=== PATIENT | female | born 1940 | race African-American/Black ===

== ENCOUNTER 2018-03-28 17:50 | Observation (INO) ==
--- NOTE | 2018-03-28 18:08 | Emergency Department Note ---
Disposition Clinical Impression: Syncope Qualifiers: Syncope type: unspecified Qualified Code(s): R55 - Syncope and collapse Disposition: Admitted As Inpatient Condition: Undetermined Time of Disposition: 00:32 General Adult HPI - General Chief complaint: ED Fall Stated complaint: syncope Time Seen by Provider: 03/28/18 17:53 Source: patient, EMS Mode of arrival: EMS Limitations: no limitations Nursing Notes Reviewed: Yes Vital Signs Reviewed: Yes - History of Present Illness Pain Scale: 7 - Related Data Home Medications Medication Instructions Recorded Confirmed ALPRAZolam [Xanax 0.5 MG Tablet] 0.5 mg PO Q6H PRN 06/23/16 03/28/18 Calcium Carbonate [Calcium] 600 mg PO DAILY 06/23/16 03/28/18 Cholecalciferol (D-3) [Vitamin D] 1,000 unit PO DAILY 06/23/16 03/28/18 Lansoprazole [Prevacid] 30 mg PO DAILY 06/23/16 03/28/18 Meloxicam [Mobic] 15 mg PO DAILY 06/23/16 03/28/18 Multivitamin [One Daily Essential] 1 each PO DAILY 06/23/16 03/28/18 Sertraline [Zoloft] 150 mg PO DAILY 06/23/16 03/28/18 TraZODone 50 mg PO HS PRN 06/23/16 03/28/18 Diltiazem CD (24hr) [Cardizem CD] 180 mg PO DAILY 03/28/18 03/28/18 Allergies Allergy/AdvReac Type Severity Reaction Status Date / Time lisinopril Allergy Abdominal Verified 08/31/17 09:16 Pain pentazocine [From Talwin] Allergy Abdominal Verified 08/31/17 09:16 Pain All systems ED: reviewed and negative except as stated. Constitutional: Reports: weakness. Denies: fever, chills Eyes: Denies: vision change ENT ED: Denies: dental pain, dysphagia Cardiovascular: Denies: chest pain Respiratory: Denies: dyspnea Gastrointestinal: Denies: abdominal pain Genitourinary: Denies: urgency, dysuria Musculoskeletal: Reports: back pain, neck pain, arthralgia. Denies: myalgia Neurological: Denies: headache, weakness, numbness, paresthesias, confusion, vertigo Past Medical History - Past Medical History Attestation: Yes The following information was validated with the patient. 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 - Social History Smoking Status: Never smoker Smokeless Tobacco Status: No Alcohol use: Reports: none Drug use: Reports: none Physical Exam - General Limitations: no limitations General appearance: alert, in no apparent distress - Head Head exam: normocephalic, normal inspection, other (Small hematoma to the right temporal region.) - Eye Eye exam: Present: normal appearance, PERRL, EOMI - ENT ENT exam: normal exam, normal oropharynx, mucous membranes moist, other (No hemotympanum) - Neck Neck exam: Present: normal inspection, full ROM, trachea midline - Chest Chest inspection: Present: normal inspection, symmetric chest wall rise - Respiratory Respiratory exam: Present: normal lung sounds bilaterally - Cardiovascular Cardiovascular exam: Present: regular rate, normal rhythm, normal heart sounds - Abdominal Exam Abdominal exam: Present: soft, Non-Tender. Absent: tenderness, distention, guarding, rebound, rigidity - Extremities Exam Extremities exam: Present: normal inspection, full ROM, tenderness (Right hip). Absent: pedal edema - Neurological Exam Neurological exam: Present: alert, oriented X3, CN II-XII intact - Skin Skin exam: Present: warm, dry, intact, normal color Course Vital Signs Temperature 98 F 03/28/18 17:55 Pulse Rate 72 03/28/18 17:55 Respiratory Rate 20 03/28/18 17:55 Blood Pressure 181/90 03/28/18 17:55 O2 Sat by Pulse Oximetry 93 03/28/18 17:55 Temperature 98.3 F 03/28/18 23:01 Pulse Rate 77 03/28/18 23:01 Respiratory Rate 16 03/28/18 23:01 Blood Pressure 152/84 03/28/18 23:01 O2 Sat by Pulse Oximetry 93 03/28/18 23:01 Oxygen Delivery Oxygen Delivery Room Air Medical Decision Making - Lab Data Result diagrams: 03/28/18 17:53 03/28/18 17:53 Lab Results 03/28/18 03/28/18 03/28/18 Range/Units 17:53 17:53 18:45 WBC 7.1 (4.3-11.1) K/mcL RBC 5.25 H (3.82-4.97) M/mcL Hgb 15.1 (11.5-15.4) g/dL Hct 46.0 H (35.3-44.9) % MCV 87.6 (83.0-100.0) fL MCH 28.8 (28.0-33.3) pg MCHC 32.8 (31.6-35.5) g/dL RDW 14.5 (11.5-14.5) % Plt Count 188 (140-400) K/mcL MPV 10.9 (9.4-12.4) fL Immature Gran % 0.3 (0-4) % Seg Neutrophils % 60.6 % Lymphocytes % 26.1 % Monocytes % 8.8 % Eosinophils % 3.4 % Basophils % 0.8 % Neutrophils # 4.3 (1.6-8.9) K/mcL Lymphocytes # 1.9 (0.6-4.6) K/mcL Monocytes # 0.6 (0.0-1.3) K/mcL Eosinophils # 0.2 (0.0-0.6) K/mcL Basophils # 0.1 (0.0-0.2) K/mcL Sodium 139 (136-145) mEq/L Potassium 4.4 (3.5-5.1) mEq/L Chloride 103 (98-107) mEq/L Carbon Dioxide 28 (23-29) mEq/L BUN 24 H (8-23) mg/dL Creatinine 0.94 (0.60-1.20) mg/dL Est GFR ( Amer) > 60 (> 60) Est GFR (Non-Af Amer) 58 L (> 60) BUN/Creatinine Ratio 26 (6-26) Glucose 96 (70-105) mg/dL Calculated Osmolality 292 (280-300) Calcium 9.7 (8.6-10.3) mg/dL Troponin I < 0.03 (< 0.04) ng/mL Urine Color Yellow (Yellow) Urine Clarity Clear (Clear) Urine pH 6.5 (5.0-8.0) pH Units Ur Specific [place] 1.012 (1.010-1.025) Urine Protein Negative (Neg-Trace) mg/dL Urine Glucose (UA) Normal (Normal) mg/dL Urine Ketones Negative (Negative) mg/dL Urine Blood Negative (Negative) Urine Nitrite Negative (Negative) Urine Bilirubin Negative (Negative) Urine Urobilinogen Normal (Normal) mg/dL Ur Leukocyte Esterase Trace H (Negative) Urine Microscopic RBC 0-3 (0-3) per hpf Urine Microscopic WBC 0-3 (0-3) per hpf Ur Squamous Epith Cells Many H (None-Few) per lpf Urine Bacteria Few (None-Few) per hpf Hyaline Casts None Seen (None-Few) per lpf Ur Culture Indicated? NO. A (NO) - EKG Data EKG #1 EKG attestation: Yes I reviewed and interpreted this EKG. EKG results narrative: Heart rate 66 bpm. Normal sinus rhythm. No ST elevation or ST depression. Attestation Statement - Attestation Attestation: I examined this patient and my medical decision-making was reviewed with the Resident Physician. I agree with the documented findings, disposition and treatment plan as described except to the extent set forth below. Patient presents to the ED with a chief complaint of a syncopal episode. Patient states she was tying her shoes when she woke up on the floor. No preceding symptoms. Patient denies any history of syncope, but she does have a history of a seizure once in the past. Complaining of pain in the right side of her head at the moment. On examination she does have some mild swelling erythema to the right druze. She is awake alert and neurologically intact. Plan. Syncope workup. Imaging is unremarkable. Labs unremarkable as well. Patient will be admitted for further monitoring and workup. Chest X-Ray 03/28/18 17:53 IMPRESSION: Stable portable study. D/ / Suzanna Beltre Cha, MD / Suzanna Beltre Cha, MD Interpreting Provider: Suzanna Beltre Cha, MD Head CT 03/28/18 17:53 IMPRESSION: No acute intracranial abnormality. D/ / Markus Iyer MD / Markus Iyer MD Interpreting Provider: Markus Iyer MD Cervical Spine CT 03/28/18 17:54 IMPRESSION: No acute abnormality of the cervical spine. Degenerative and degenerative disc disease. Estimated biologic radiation dose for this procedure:1094 mGy/cm2. D/ / Carey Petersen MD / Carey Petersen MD Interpreting Provider: Carey Petersen MD Lumbar Spine CT 03/28/18 17:54 IMPRESSION: Unremarkable non-contrast CT of the lumbar spine. No acute osseous abnormality. D/ / Carey Petersen MD / Carey Petersen MD Interpreting Provider: Carey Petersen MD Pelvis X-Ray 03/28/18 17:54 IMPRESSION: No acute bony abnormality. D/ / Suzanna Beltre Cha, MD / Suzanna Beltre Cha, MD Interpreting Provider: Suzanna Beltre Cha, MD Thoracic Spine CT 03/28/18 17:54 IMPRESSION: Unremarkable CT of the thoracic spine. Diffuse mild degenerative and degenerative disc changes. No acute fracture or subluxation. D/ / Carey Petersen MD / Carey Petersen MD Interpreting Provider: Carey Petersen MD
[2018-03-28 18:54] LABS: Basophils # 0.1 K/mcL (0.0-0.2); Basophils % 0.8 %; Eosinophils # 0.2 K/mcL (0.0-0.6); Eosinophils % 3.4 %; Hemoglobin 15.1 g/dL (11.5-15.4); Immature Granulocytes % 0.3 % (0-4); Lymphocytes # 1.9 K/mcL (0.6-4.6); Lymphocytes % 26.1 %; Mean Corpuscular HGB Conc 32.8 g/dL (31.6-35.5); Mean Corpuscular Hemoglobin 28.8 pg (28.0-33.3); Mean Corpuscular Volume 87.6 fL (83.0-100.0); Mean Platelet Volume 10.9 fL (9.4-12.4); Monocytes # 0.6 K/mcL (0.0-1.3); Monocytes % 8.8 %; Neutrophils # 4.3 K/mcL (1.6-8.9); Platelet Count 188 K/mcL (140-400); Red Blood Count 5.25 M/mcL (3.82-4.97); Red Cell Distribution Width 14.5 % (11.5-14.5); Segmented Neutrophils % 60.6 %
[2018-03-28 18:55] LABS: Bilirubin,Urine Negative (Negative); Blood,Urine Negative (Negative); Clarity,Urine Clear (Clear); Color,Urine Yellow (Yellow); Glucose,Urine (UA) Normal (Normal); Ketones,Urine Negative (Negative); Leukocyte Esterase,Urine Trace (Negative); Nitrite,Urine Negative (Negative); PH,Urine 6.5 pH Units (5.0-8.0); Protein,Urine Negative (Neg-Trace); Specific Gravity,Urine 1.012 (1.010-1.025); Urobilinogen,Urine Normal (Normal)
[2018-03-28 18:57] LABS: Bacteria,Urine Few per hpf (None-Few); Hyaline Casts,Urine None Seen per lpf (None-Few); RBC,Urine 0-3 per hpf (0-3); Squamous Epithelial Cell,Urine Many per lpf (None-Few); WBC,Urine 0-3 per hpf (0-3)
--- NOTE | 2018-03-28 19:22 | Emergency Department Note ---
Disposition Clinical Impression: Syncope Qualifiers: Syncope type: unspecified Qualified Code(s): R55 - Syncope and collapse Disposition: Admitted As Inpatient Condition: Undetermined Referrals: Demetra Frazier MD [Primary Care Provider] - Forms: ED Satisfaction Letter Time of Disposition: 20:24 General Adult HPI - General Chief complaint: ED Fall Stated complaint: syncope Time Seen by Provider: 03/28/18 17:53 Source: patient, EMS Mode of arrival: EMS Limitations: no limitations Nursing Notes Reviewed: Yes Vital Signs Reviewed: Yes - History of Present Illness HPI Narrative: 77-year-old female arrives to the emergency department after a syncopal episode at home today. The patient states she went down to tie her shoe and she woke up on the ground. The patient thinks that she passed out a couple times. The patient is unsure about hitting her head but thinks she did because she has a some bruising on the right side of her head. The patient is complaining of headache as well as some mid to low back pain. She denies any other complaint of the right hip pain. The patient denies any previous asthma episodes of CP in the past. She denies any prodromal symptoms to include dizziness, lightheaded sensation, headache, chest pain, difficulty breathing. The patient arrives to the emergency Department is neurologically intact. Her examination is benign and the patient is nontoxic appearing. The patient does have a small hematoma to the right side of her head. No other obvious abnormalities noted on initial examination. The patient denies any other complaints and is otherwise resting comfortably in the room at this time. Pain Scale: 7 - Related Data Home Medications Medication Instructions Recorded Confirmed ALPRAZolam [Xanax 0.5 MG Tablet] 0.5 mg PO Q6H PRN 06/23/16 08/31/17 Calcium Carbonate [Calcium] 600 mg PO DAILY 06/23/16 08/31/17 Chlorthalidone 25 mg PO DAILY 06/23/16 08/31/17 Cholecalciferol (D-3) [Vitamin D] 1,000 unit PO DAILY 06/23/16 08/31/17 Lansoprazole [Prevacid] 30 mg PO DAILY 06/23/16 02/16/18 Meloxicam [Mobic] 15 mg PO DAILY 06/23/16 02/16/18 Mometasone Furoate [Nasonex] 2 spr NS DAILY PRN 06/23/16 08/31/17 Multivitamin [One Daily Essential] 1 each PO DAILY 06/23/16 02/16/18 Sertraline [Zoloft] 200 mg PO DAILY 06/23/16 02/16/18 TraZODone 50 mg PO HS PRN 06/23/16 02/16/18 Allergies Allergy/AdvReac Type Severity Reaction Status Date / Time lisinopril Allergy Abdominal Verified 08/31/17 09:16 Pain pentazocine [From Talwin] Allergy Abdominal Verified 08/31/17 09:16 Pain All systems ED: reviewed and negative except as stated. Constitutional: Reports: weakness. Denies: fever, chills Eyes: Denies: vision change ENT ED: Denies: dental pain, dysphagia Cardiovascular: Denies: chest pain Respiratory: Denies: dyspnea Gastrointestinal: Denies: abdominal pain Genitourinary: Denies: urgency, dysuria Musculoskeletal: Reports: back pain, neck pain, arthralgia. Denies: myalgia Neurological: Denies: headache, weakness, numbness, paresthesias, confusion, vertigo Past Medical History - Past Medical History Attestation: Yes The following information was validated with the patient. 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 - Social History Smoking Status: Never smoker Smokeless Tobacco Status: No Alcohol use: Reports: none Drug use: Reports: none Physical Exam - General Limitations: no limitations General appearance: alert, in no apparent distress - Head Head exam: normocephalic, normal inspection, other (Small hematoma noted on the right temporal lobe.) - Eye Eye exam: Present: normal appearance, PERRL, EOMI - ENT ENT exam: normal exam, normal oropharynx, mucous membranes moist - Neck Neck exam: Present: normal inspection, full ROM, trachea midline - Chest Chest inspection: Present: normal inspection, symmetric chest wall rise - Respiratory Respiratory exam: Present: normal lung sounds bilaterally - Cardiovascular Cardiovascular exam: Present: regular rate, normal rhythm, normal heart sounds - Abdominal Exam Abdominal exam: Present: soft, Non-Tender. Absent: tenderness, distention, guarding, rebound, rigidity - Extremities Exam Extremities exam: Present: normal inspection, full ROM. Absent: tenderness, pedal edema - Neurological Exam Neurological exam: Present: alert, oriented X3, CN II-XII intact. Absent: motor sensory deficit - Expanded Neurological Exam Patient oriented to: Present: person, place, time Speech: Present: fluid speech Cranial nerves: EOM function (II, III, IV, ): Normal, facial sensation (V): Normal, facial palsy (VII): Normal Motor strength - LUE: 5/5 Motor strength - RUE: 5/5 Motor strength - LLE: 5/5 Motor strength - RLE: 5/5 Sensory exam upper extremity: light touch: Normal Sensory exam lower extremity: light touch: Normal Coma Scale Eye Opening: Spontaneous Coma Scale Motor Response: Obeys Commands Coma Scale Verbal Response: Oriented Coma Scale Total: 15 - Skin Skin exam: Present: warm, dry, intact, normal color Course Vital Signs Temperature 98 F 03/28/18 17:55 Pulse Rate 72 03/28/18 17:55 Respiratory Rate 20 03/28/18 17:55 Blood Pressure 181/90 03/28/18 17:55 O2 Sat by Pulse Oximetry 93 03/28/18 17:55 Temperature 98 F 03/28/18 17:55 Pulse Rate 74 03/28/18 19:00 Respiratory Rate 18 03/28/18 19:00 Blood Pressure 177/119 03/28/18 19:00 O2 Sat by Pulse Oximetry 96 03/28/18 19:00 Oxygen Delivery Oxygen Delivery Room Air Medical Decision Making - MDM Narrative Medical decision making narrative: Patient's workup in the emergency department demonstrates a mildly elevated BUNs. The patient does admit to drinking less fluids recently. Patient is resting comfortably. Imaging including head CT, cervical spine CT as well demonstrates no acute process. The patient's lab work did not treats a mildly elevated BUNs, so we will check a Hemoccult. The patient will be admitted to the hospital for further workup and care at this time. Family and patient agree to plan. No further questions or concerns noted. Accepted by Dr. Agrawal. - Lab Data Lab results reviewed: Yes I reviewed the patient's lab results. Result diagrams: 03/28/18 17:53 03/28/18 17:53 Lab Results 03/28/18 03/28/18 03/28/18 Range/Units 17:53 17:53 18:45 WBC 7.1 (4.3-11.1) K/mcL RBC 5.25 H (3.82-4.97) M/mcL Hgb 15.1 (11.5-15.4) g/dL Hct 46.0 H (35.3-44.9) % MCV 87.6 (83.0-100.0) fL MCH 28.8 (28.0-33.3) pg MCHC 32.8 (31.6-35.5) g/dL RDW 14.5 (11.5-14.5) % Plt Count 188 (140-400) K/mcL MPV 10.9 (9.4-12.4) fL Immature Gran % 0.3 (0-4) % Seg Neutrophils % 60.6 % Lymphocytes % 26.1 % Monocytes % 8.8 % Eosinophils % 3.4 % Basophils % 0.8 % Neutrophils # 4.3 (1.6-8.9) K/mcL Lymphocytes # 1.9 (0.6-4.6) K/mcL Monocytes # 0.6 (0.0-1.3) K/mcL Eosinophils # 0.2 (0.0-0.6) K/mcL Basophils # 0.1 (0.0-0.2) K/mcL Sodium 139 (136-145) mEq/L Potassium 4.4 (3.5-5.1) mEq/L Chloride 103 (98-107) mEq/L Carbon Dioxide 28 (23-29) mEq/L BUN 24 H (8-23) mg/dL Creatinine 0.94 (0.60-1.20) mg/dL Est GFR ( Amer) > 60 (> 60) Est GFR (Non-Af Amer) 58 L (> 60) BUN/Creatinine Ratio 26 (6-26) Glucose 96 (70-105) mg/dL Calculated Osmolality 292 (280-300) Calcium 9.7 (8.6-10.3) mg/dL Troponin I < 0.03 (< 0.04) ng/mL Urine Color Yellow (Yellow) Urine Clarity Clear (Clear) Urine pH 6.5 (5.0-8.0) pH Units Ur Specific [place] 1.012 (1.010-1.025) Urine Protein Negative (Neg-Trace) mg/dL Urine Glucose (UA) Normal (Normal) mg/dL Urine Ketones Negative (Negative) mg/dL Urine Blood Negative (Negative) Urine Nitrite Negative (Negative) Urine Bilirubin Negative (Negative) Urine Urobilinogen Normal (Normal) mg/dL Ur Leukocyte Esterase Trace H (Negative) Urine Microscopic RBC 0-3 (0-3) per hpf Urine Microscopic WBC 0-3 (0-3) per hpf Ur Squamous Epith Cells Many H (None-Few) per lpf Urine Bacteria Few (None-Few) per hpf Hyaline Casts None Seen (None-Few) per lpf Ur Culture Indicated? NO. A (NO) - Radiology Data Radiology results reviewed: Yes I reviewed the patient's radiology results. Chest X-Ray 03/28/18 17:53 IMPRESSION: Stable portable study. D/ / Suzanna Beltre Cha, MD / Suzanna Beltre Cha, MD Interpreting Provider: Suzanna Beltre Cha, MD Head CT 03/28/18 17:53 IMPRESSION: No acute intracranial abnormality. D/ / Markus Iyer MD / Markus Iyer MD Interpreting Provider: Markus Iyer MD Cervical Spine CT 03/28/18 17:54 IMPRESSION: No acute abnormality of the cervical spine. Degenerative and degenerative disc disease. Estimated biologic radiation dose for this procedure:1094 mGy/cm2. D/ / Carey Petersen MD / Carey Petersen MD Interpreting Provider: Carey Petersen MD Lumbar Spine CT 03/28/18 17:54 IMPRESSION: Unremarkable non-contrast CT of the lumbar spine. No acute osseous abnormality. D/ / Carey Petersen MD / Carey Petersen MD Interpreting Provider: Carey Petersen MD Pelvis X-Ray 03/28/18 17:54 IMPRESSION: No acute bony abnormality. D/ / Suzanna Beltre Cha, MD / Suzanna Beltre Cha, MD Interpreting Provider: Suzanna Beltre Cha, MD Thoracic Spine CT 03/28/18 17:54 IMPRESSION: Unremarkable CT of the thoracic spine. Diffuse mild degenerative and degenerative disc changes. No acute fracture or subluxation. D/ / Carey Petersen MD / Carey Petersen MD Interpreting Provider: Carey Petersen MD
[2018-03-28 19:45] LABS: BUN/Creatinine Ratio 26 (6-26); Blood Urea Nitrogen 24 mg/dL (8-23); Calcium 9.7 mg/dL (8.6-10.3); Carbon Dioxide 28 mEq/L (23-29); Chloride 103 mEq/L (98-107); Glucose 96 mg/dL (70-105); Osmolality,Calculated 292 (280-300); Potassium 4.4 mEq/L (3.5-5.1); Sodium 139 mEq/L (136-145); eGFR For Non-African Americans 58 (> 60)
[2018-03-28 19:46] LABS: Troponin I < 0.03 ng/mL (< 0.04)
[2018-03-28] MEDS ORDERED: 0.9 % Sodium Chloride 1,000 ML IVC ONE (20:02)
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
[2018-03-28] MEDS ORDERED: Acetaminophen 325 MG TABLET PO PRN (23:40)
[2018-03-28] MEDS ORDERED: Naloxone 0.4 MG/ML INJ IVP PRN (23:40)
[2018-03-29] MEDS: 0.9 % Sodium Chloride 1,000 ML IVC SCH ×2 (00:21→05:12)
[2018-03-29] MEDS: *HR* HYDROcodone/Acet 5/325 mg TABLET PO PRN ×3 (00:25→14:31)
[2018-03-29] MEDS ORDERED: traZODone 50 MG TABLET PO PRN (02:01)
[2018-03-29] MEDS ORDERED: ALPRAZolam 0.5 MG TABLET PO PRN (02:01)
[2018-03-29] MEDS ORDERED: *HR* Heparin 5,000 UNIT/ML VIAL SQ SCH (06:00)
[2018-03-29 07:10] LABS: Basophils # 0.1 K/mcL (0.0-0.2); Basophils % 0.8 %; Eosinophils # 0.3 K/mcL (0.0-0.6); Hematocrit 43.2 % (35.3-44.9); Hemoglobin 13.8 g/dL (11.5-15.4); Immature Granulocytes % 0.3 % (0-4); Lymphocytes # 2.4 K/mcL (0.6-4.6); Lymphocytes % 33.5 %; Mean Corpuscular HGB Conc 31.9 g/dL (31.6-35.5); Mean Corpuscular Hemoglobin 27.8 pg (28.0-33.3); Mean Corpuscular Volume 87.1 fL (83.0-100.0); Mean Platelet Volume 10.9 fL (9.4-12.4); Monocytes # 0.6 K/mcL (0.0-1.3); Monocytes % 8.2 %; Neutrophils # 3.8 K/mcL (1.6-8.9); Platelet Count 197 K/mcL (140-400); Red Blood Count 4.96 M/mcL (3.82-4.97); Red Cell Distribution Width 14.5 % (11.5-14.5); Segmented Neutrophils % 53.2 %
[2018-03-29 07:28] LABS: BUN/Creatinine Ratio 29 (6-26); Blood Urea Nitrogen 20 mg/dL (8-23); Calcium 9.2 mg/dL (8.6-10.3); Carbon Dioxide 25 mEq/L (23-29); Chloride 106 mEq/L (98-107); Glucose 98 mg/dL (70-105); Osmolality,Calculated 291 (280-300); Sodium 139 mEq/L (136-145); eGFR For Non-African Americans > 60 (> 60)
[2018-03-29] MEDS ORDERED: Diltiazem CD (24hr) 180 MG CAPSULE PO SCH (09:00)
[2018-03-29 12:08] VITALS: BP 151/79
[2018-03-29] MEDS ORDERED: Ondansetron 4 MG/2 ML VIAL IVP ONE (17:01)
[2018-03-29] MEDS ORDERED: Ondansetron 4 MG/2 ML VIAL ONE (17:02)
--- NOTE | 2018-03-29 17:30 | Discharge Summary ---
- NOTES TO OUTPATIENT PROVIDER Notes to Outpatient Provider: Syncopal episode resulting bilateral subdural hematoma right cerebral convexity 5 mm in thickness left frontal convexity measuring and 5 mm in thickness Date of Encounter: 03/29/18 Time of Encounter: 17:28 - Discharge Diagnosis (1) Acute subdural hematoma Priority: Secondary Status: Acute (2) Syncope Priority: Primary Status: Suspected Qualifiers: Syncope type: vasovagal syncope Qualified Code(s): R55 - Syncope and collapse (3) Hypertension Priority: Secondary Status: Chronic Qualifiers: Hypertension type: essential hypertension Qualified Code(s): I10 - Essential (primary) hypertension (4) Hyperlipidemia Priority: Secondary Status: Chronic Qualifiers: Hyperlipidemia type: unspecified Qualified Code(s): E78.5 - Hyperlipidemia , unspecified (5) History of seizures Priority: Secondary Status: Chronic Hospital course: Ms. Lyons is a 77 year old female past medical history of arthritis GERD hyperlipidemia hypertension seizures depression. According the patient approximately 5 PM on 03/28/2018 patient was rising from a count while watching television when she loss consciousness. She denied any preceding symptoms including chest pain shortness of breath palpitations vision changes lightheadedness. She was unconscious for for approximately a minute when her found her. He was present in the same room however he was sleeping at the time and awoke to the sound of her head hitting the floor. She did regain consciousness however she did feel fatigued denies any post ictal confusion. She did have urinary incontinence however she states that she would originally was getting up to use the restroom prior to the incident. She does have a history of a seizure that occurred many years ago and has not had any seizures since then. On presentation to the emergency department she did have hypertension with a blood pressure of 177/119. Laboratory was unremarkable CT of her head cervical thoracic lumbar spine were also unremarkable. Chest x-ray and pelvic x-ray were normal. EKG did show normal sinus rhythm with no ST-T wave abnormalities. She was admitted and observed. Today patient continued to complain of headache which she described as dull occurring in the frontal area. Neurological exam with no focal deficits. Patient does state that she feels very tired and sleepy. Patient was unable to stand without becoming lightheaded and unsteady. She was unable to ambulate. Carotid duplex ordered MRI was obtained which did reveal acute subdural hematoma layering over the right cerebral convexity measuring up to 5 mm in thickness without significant midline shift. A small focus of extra-axial hemorrhage is also present over the left frontal convexity measuring up to 5 mm in thickness. I did discuss the results with the patient, explained to patient that we do not have neurosurgery available at this facility, and even though at this time her hematoma is small and she is stable, her condition could change quickly and we do not have neurosurgery services available. She would be safer at a center with neuro surgical capabilities. I reviewed options of [facility] as well as [facility]. Patient requested transfer to [facility]. I did speak with transfer center -nursing notified me that accepting physician is Yoel Hernandez and patient will be going to [facility]. She is hemodynamically stable at this time and is ready for transfer - Time Spent with Patient Total time spent providing and/or coordinating discharge services: - Discharge Medications Home Medications: ALPRAZolam [Xanax 0.5 MG Tablet] 0.5 mg PO Q6H PRN 06/23/16 [History] Calcium Carbonate [Calcium] 600 mg PO DAILY 06/23/16 [History] Cholecalciferol (D-3) [Vitamin D] 1,000 unit PO DAILY 06/23/16 [History] Lansoprazole [Prevacid] 30 mg PO DAILY 06/23/16 [History] Meloxicam [Mobic] 15 mg PO DAILY 06/23/16 [History] Multivitamin [One Daily Essential] 1 each PO DAILY 06/23/16 [History] Sertraline [Zoloft] 150 mg PO DAILY 06/23/16 [History] TraZODone 50 mg PO HS PRN 06/23/16 [History] Diltiazem CD (24hr) [Cardizem CD] 180 mg PO DAILY 03/28/18 [History] Allergies/Adverse Reactions: 3 Allergy/AdvReac Type Severity Reaction Status Date / Time lisinopril Allergy Abdominal Verified 08/31/17 09:16 Pain pentazocine [From Talwin] Allergy Abdominal Verified 08/31/17 09:16 Pain Date of admission: 03/28/18 21:28 Primary care physician: Demetra Frazier MD Discharging clinician: Anastasia Perez Anticipated date of discharge: 03/29/18 - Constitutional Vitals: Temp Pulse Resp BP Pulse Ox 97.4 F L 59 18 151/79 96 03/29/18 12:05 03/29/18 12:05 03/29/18 12:05 03/29/18 12:05 03/29/18 12:05 General appearance: Present: A&O X 3 - Head Head exam: Present: atraumatic, normocephalic - Eye Eye exam: Present: PERRL, conjuntiva pink, sclera anicteric Pupils: Present: PERRL - Neck Neck exam general surgery: Present: supple, trachea midline. Absent: lymphadenopathy - Respiratory Respiratory exam: Present: CTAB. Absent: accessory muscle use, rales, rhonchi, wheezes - Cardiovascular Cardiovascular exam: Present: RRR, +S1, +S2. Absent: diastolic murmur, gallop, rubs, systolic murmur - GI/Abdominal GI/Abdominal exam: Present: normal bowel sounds, soft, no peritoneal signs. Absent: distended, tenderness - Extremities Exam Extremities exam: Present: warm, radial pulses palpable and symmetrical. Absent : calf tenderness, cyanotic, pedal edema - Neurological Exam Neurological exam: Present: CN II-XII intact, oriented X3, no focal deficits. Absent: pronater drift, facial droop, speech deficit - Expanded Neurological Exam Patient oriented to: Present: person, place, time Neuro motor strength exam: LUE: 5, RUE: 5, LLE: 5, RLE: 5 Coma Scale Eye Opening: Spontaneous Coma Scale Motor Response: Obeys Commands Coma Scale Verbal Response: Oriented Coma Scale Total: 15 - Patient Status Disposition: Transfer Other Condition: Good Functional capacity at discharge: independent ambulation Overall status at discharge: patient is progressing back to baseline - Discharge Instructions Follow Up With: Demetra Frazier MD [Primary Care Provider] - - Diet and Activity Activity: resume usual activities as tolerated Diet: advance to your usual diet
--- NOTE | 2018-03-30 02:17 | Electrocardiograph Report ---
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
== END 2018-03-29 18:32 | disposition other institution (70) ==
LOC: EMEROO 17:50 → 3BNU 17:50
PROVIDERS: ADMIT Student in an Organized Health Care Education/Training Program; ATTEND Student in an Organized Health Care Education/Training Program